=== PATIENT | male | born 1940 | race Caucasian/White ===

== ENCOUNTER 2018-02-05 11:48 | Outpatient (CLI) | payer MEDICARE, OTHER ==
[~2018-02-05] VITALS: Ht 170.2 cm; Wt 98.2 kg
[~2018-02-05 11:48] MED LIST: ASPIRIN 81 MG E81 MG PO; BIAXIN125 MG/5 M; BYSTOLIC10 MG PO; CARDIZEM CD360 MG PO; CENTRUM COMPLE1 EACH PO; CHLORTHALIDONE25 MG PO; COUMADIN5 MG PO; ESTER-C 500 MG1 TAB PO; FISH OIL 1,0001 CA1 PO; FLOMAX0.4 MG PO; GLUCOTROL XL 1010 MG PO; KLOR-CON 1010 MEQ PO; LOTENSIN40 MG PO; ONGLYZA5 MG PO; PENTOXIL400 MG PO; PERCOCET 10/3251 TA1 PO; ZOCOR80 MG PO; ZYLOPRIM300 MG PO
[2018-02-05 13:35] VITALS: Ht 170.2 cm; Wt 98.2 kg
== END 2018-02-05 20:10 | disposition home or self-care (01) ==
LOC: D.OPS 11:48
DX: D64.9 Anemia, unspecified (principal)